=== PATIENT | male | born 1975 | race Caucasian/White ===

== ENCOUNTER 2018-08-04 12:36 | Outpatient (CLI) | payer OTHER ==
[2018-08-04] MEDS ORDERED: AMLO1CAP7 PO (13:06)
[2018-08-04] MEDS ORDERED: OMEP20TA62 PO (13:06)
[2018-08-04] MEDS ORDERED: ONDA8TAB9 PO (13:06)
[2018-08-04] MEDS ORDERED: METF500T17 PO (13:06)
[2018-08-04] MEDS ORDERED: ATOR20TA37 PO (13:06)
[2018-08-04] MEDS ORDERED: SITA25TA PO (13:06)
[2018-08-04 13:42] LABS: BASOPHILS # (AUTO) 0.03 x10^3/uL (0-0.1); BASOPHILS % (AUTO) 0 % (0-1); EOSINOPHILS # (AUTO) 0.07 x10^3/uL (0-0.4); EOSINOPHILS % (AUTO) 1 % (1-7); LYMPHOCYTES # (AUTO) 2.22 x10^3/uL (1-3.4); LYMPHOCYTES % (AUTO) 20 % (22-44); MD NO; MEAN CORPUSCULAR HEMOGLOBIN 30.1 pg (27.5-34.5); MEAN CORPUSCULAR HGB CONC 33.3 g/dL (33.2-36.2); MEAN CORPUSCULAR VOLUME 90.3 fL (81-97); MEAN PLATELET VOLUME 9.4 fL (7.4-10.4); MONOCYTES # (AUTO) 0.65 x10^3/uL (0.2-0.8); MONOCYTES % (AUTO) 6 % (2-9); NEUTROPHILS # (AUTO) 8.27 x10^3/uL (1.8-6.8); NEUTROPHILS % (AUTO) 74 % (42-75); PLATELET COUNT 211 x10^3/uL (130-400); RED BLOOD COUNT 5.73 x10^6/uL (4.38-5.82); RED CELL DISTRIBUTION WIDTH 13.5 % (9.4-14.8)
[2018-08-04 14:27] LABS: ALBUMIN 3.9 g/dL (3.4-5.0); CHLORIDE 106 mmol/L (98-107); CHOLESTEROL, TOTAL 226 mg/dL (140-239); CREATININE 0.95 mg/dL (0.7-1.3)
[2018-08-04 14:55] LABS: % IRON SATURATION 22 % (20-55); ALANINE AMINOTRANSFERASE 45 U/L (12-78); ALKALINE PHOSPHATASE 91 U/L (45-117); ANION GAP 7 mmol/L (5-15); BILIRUBIN,TOTAL 0.8 mg/dL (0.2-1.0); CALCIUM 9.3 mg/dL (8.5-10.1); CHOL/HDL RATIO 4.6; HDL CHOL % 22 % (26-37); HDL CHOLESTEROL (DIRECT) 49 mg/dL (40-60); IRON LEVEL 73 mcg/dL (65-175); LDL CHOLESTEROL,CALCULATED 150 mg/dL (54-169); LDL/HDL RATIO 3.1 (0.5-3.0); PREALBUMIN 28.3 mg/dL (20.0-40.0); TOTAL IRON BINDING CAPACITY 328 mcg/dL (250-450); TOTAL PROTEIN 8.9 g/dL (6.4-8.2); TRANSFERRIN 239 mg/dL (200-360); TRIGLYCERIDES 135 mg/dL (50-200); VLDL CHOLESTEROL 27 mg/dL (0-25)
[2018-08-04 14:56] LABS: FOLATE LEVEL > 20.0 ng/mL (3.1-17.5)
== END 2018-08-04 23:59 | disposition home or self-care (01) ==
LOC: STAR 12:36
PROVIDERS: ATTEND Thoracic Surgery (Cardiothoracic Vascular Surgery)
DX: Z01.818 Encounter for other preprocedural examination (principal); E66.01 Morbid (severe) obesity due to excess calories; G47.30 Sleep apnea, unspecified; E11.9 Type 2 diabetes mellitus without complications; F41.9 Anxiety disorder, unspecified
CPT/HCPCS: 36415; 71046; 80053; 80061; 82306; 82728; 82746; 83540; 83550; 83970; 84134; 84425; 84466; 85025; 93005

== ENCOUNTER → 2018-12-13 | Outpatient (CLI) | payer OTHER ==
[~2018-12-13] MED LIST: AMLO1CAP7 PO; ATOR20TA37 PO; HYDR473S47 PO; METF500T17 PO; OMEP20TA62 PO; ONDA8TAB9 PO; SITA25TA PO
[2018-12-13 09:03] LABS: ALBUMIN 3.9 g/dL (3.4-5.0); CALCIUM 9.5 mg/dL (8.5-10.1); CHOLESTEROL, TOTAL 167 mg/dL (140-239); TOTAL IRON BINDING CAPACITY 289 mcg/dL (250-450)
[2018-12-13 09:18] LABS: ANION GAP 5 mmol/L (5-15); CHLORIDE 112 mmol/L (98-107)
[2018-12-13 09:30] LABS: % IRON SATURATION 31 % (20-55); ALANINE AMINOTRANSFERASE 28 U/L (12-78); ALKALINE PHOSPHATASE 74 U/L (45-117); BILIRUBIN,TOTAL 0.7 mg/dL (0.2-1.0); CHOL/HDL RATIO 2.5; CREATININE 0.89 mg/dL (0.7-1.3); FOLATE LEVEL 11.2 ng/mL (3.1-17.5); HDL CHOL % 40 % (26-37); HDL CHOLESTEROL (DIRECT) 66 mg/dL (40-60); IRON LEVEL 91 mcg/dL (65-175); LDL CHOLESTEROL,CALCULATED 87 mg/dL (54-169); LDL/HDL RATIO 1.3 (0.5-3.0); PREALBUMIN 22.7 mg/dL (20.0-40.0); TRIGLYCERIDES 71 mg/dL (50-200); VLDL CHOLESTEROL 14 mg/dL (0-25)
[2018-12-13 09:45] LABS: BASOPHILS # (AUTO) 0.05 x10^3/uL (0-0.1); BASOPHILS % (AUTO) 1 % (0-1); EOSINOPHILS # (AUTO) 0.11 x10^3/uL (0-0.4); EOSINOPHILS % (AUTO) 1 % (1-7); LYMPHOCYTES # (AUTO) 2.14 x10^3/uL (1-3.4); LYMPHOCYTES % (AUTO) 28 % (22-44); MD NO; MEAN CORPUSCULAR HEMOGLOBIN 31.1 pg (27.5-34.5); MEAN CORPUSCULAR HGB CONC 32.6 g/dL (33.2-36.2); MEAN CORPUSCULAR VOLUME 95.4 fL (81-97); MEAN PLATELET VOLUME 10.1 fL (7.4-10.4); MONOCYTES # (AUTO) 0.45 x10^3/uL (0.2-0.8); MONOCYTES % (AUTO) 6 % (2-9); NEUTROPHILS # (AUTO) 5.06 x10^3/uL (1.8-6.8); NEUTROPHILS % (AUTO) 65 % (42-75); PLATELET COUNT 208 x10^3/uL (130-400); RED BLOOD COUNT 5.05 x10^6/uL (4.38-5.82)
== END | disposition home or self-care (01) ==
LOC: LAB 08:34
PROVIDERS: ATTEND Clinical Nurse Specialist
DX: I10 Essential (primary) hypertension (principal); E66.01 Morbid (severe) obesity due to excess calories; K90.9 Intestinal malabsorption, unspecified; E56.9 Vitamin deficiency, unspecified; R63.8 Other symptoms and signs concerning food and fluid intake
CPT/HCPCS: 36415; 80053; 80061; 82306; 82607; 82746; 83540; 83550; 84134; 84207; 84425; 85025

== ENCOUNTER 2019-07-14 08:51 | Outpatient (CLI) | payer OTHER ==
[~2019-07-14 08:51] MED LIST changes: +AMLO1CAP42 PO; -AMLO1CAP7 PO
[2019-07-14 09:21] LABS: ALANINE AMINOTRANSFERASE 31 U/L (12-78); ALBUMIN 3.5 g/dL (3.4-5.0); ANION GAP 3 mmol/L (5-15); CHLORIDE 111 mmol/L (98-107); CHOLESTEROL, TOTAL 190 mg/dL (140-239); CREATININE 0.97 mg/dL (0.7-1.3)
[2019-07-14 09:24] LABS: ALKALINE PHOSPHATASE 74 U/L (45-117); BILIRUBIN,TOTAL 0.8 mg/dL (0.2-1.0); CHOL/HDL RATIO 2.3; HDL CHOL % 44 % (26-37); HDL CHOLESTEROL (DIRECT) 84 mg/dL (40-60); LDL CHOLESTEROL,CALCULATED 93 mg/dL (54-169); LDL/HDL RATIO 1.1 (0.5-3.0); TOTAL PROTEIN 7.8 g/dL (6.4-8.2); TRIGLYCERIDES 64 mg/dL (50-200); VLDL CHOLESTEROL 13 mg/dL (0-25)
== END 2019-07-14 23:59 | disposition home or self-care (01) ==
LOC: LAB 08:51
PROVIDERS: ATTEND Family Medicine
DX: E11.9 Type 2 diabetes mellitus without complications (principal)
CPT/HCPCS: 36415; 80053; 80061; 82043; 83036

== ENCOUNTER 2019-09-25 10:55 | Outpatient (CLI) | payer OTHER ==
[2019-09-25] MEDS ORDERED: BIOTIN PO (11:25)
[2019-09-25] MEDS ORDERED: LIPITOR PO (11:25)
[2019-09-25] MEDS ORDERED: AMLO1CAP6 PO (11:25)
[2019-09-25] MEDS ORDERED: CHOL10003 PO (11:25)
[2019-09-25] MEDS ORDERED: [UNRECOGNIZED DRUG - OTHER] PO (11:25)
[2019-09-25] MEDS ORDERED: METF500T17 PO (11:25)
[2019-09-25 11:57] LABS: BASOPHILS # (AUTO) 0.04 x10^3/uL (0-0.1); BASOPHILS % (AUTO) 0 % (0-1); EOSINOPHILS # (AUTO) 0.09 x10^3/uL (0-0.4); EOSINOPHILS % (AUTO) 1 % (1-7); LYMPHOCYTES # (AUTO) 2.17 x10^3/uL (1-3.4); LYMPHOCYTES % (AUTO) 23 % (22-44); MD NO; MEAN CORPUSCULAR HEMOGLOBIN 31.1 pg (27.5-34.5); MEAN CORPUSCULAR HGB CONC 33.2 g/dL (33.2-36.2); MEAN CORPUSCULAR VOLUME 93.8 fL (81-97); MEAN PLATELET VOLUME 9.5 fL (7.4-10.4); MONOCYTES # (AUTO) 0.49 x10^3/uL (0.2-0.8); MONOCYTES % (AUTO) 5 % (2-9); NEUTROPHILS # (AUTO) 6.69 x10^3/uL (1.8-6.8); NEUTROPHILS % (AUTO) 71 % (42-75); PLATELET COUNT 207 x10^3/uL (130-400); RED BLOOD COUNT 4.91 x10^6/uL (4.38-5.82); RED CELL DISTRIBUTION WIDTH 13.1 % (9.4-14.8)
[2019-09-25 12:01] LABS: ALANINE AMINOTRANSFERASE 22 U/L (12-78); ALBUMIN 3.5 g/dL (3.4-5.0); ANION GAP 8 mmol/L (5-15); CHLORIDE 111 mmol/L (98-107)
[2019-09-25 12:03] LABS: ALKALINE PHOSPHATASE 82 U/L (45-117); BILIRUBIN,TOTAL 0.6 mg/dL (0.2-1.0); TOTAL PROTEIN 7.7 g/dL (6.4-8.2)
[2019-09-25 12:04] LABS: INTERNATIONAL NORMALIZED RATIO 0.96 (0.93-1.1); PROTHROMBIN TIME 10.2 Seconds (9.6-11.5)
== END 2019-09-25 23:59 | disposition home or self-care (01) ==
LOC: STAR 10:55
PROVIDERS: ATTEND Orthopaedic Surgery
DX: Z01.818 Encounter for other preprocedural examination (principal); M16.12 Unilateral primary osteoarthritis, left hip; M25.552 Pain in left hip; I49.5 Sick sinus syndrome; Q65.89 Other specified congenital deformities of hip; Z79.899 Other long term (current) drug therapy
CPT/HCPCS: 36415; 80053; 83036; 85025; 85610; 85730; 87081; 93005

== ENCOUNTER 2019-10-04 05:54 | Day surgery (SDC) | payer OTHER ==
[~2019-10-04] VITALS: Ht 190.5 cm; Wt 153.0 kg
[~2019-10-04 05:54] MED LIST changes: +AMLO1CAP6 PO; +BIOTIN PO; +CHOL10003 PO; +LIPITOR PO; +[UNRECOGNIZED DRUG - OTHER] PO
[2019-10-04] MEDS ORDERED: LACTATED RINGERS 1,000 ML IV SCH (06:05)
[2019-10-04 06:08] VITALS: BP 156/107
[2019-10-04] MEDS ORDERED: MIDAZOLAM 1 MG/ML, 2ML ONE (06:23)
[2019-10-04] MEDS ORDERED: FENTANYL PF 250 MCG/5ML ONE (06:24)
[2019-10-04] MEDS ORDERED: BISACODYL 10 MG SUPP PR PRN (06:30)
[2019-10-04] MEDS ORDERED: ONDANSETRON 2MG/ML, 2ML IV PRN (06:30)
[2019-10-04] MEDS ORDERED: DIPHENHYDRAMINE 25 MG CAPSULE PO PRN (06:30)
[2019-10-04] MEDS ORDERED: ONDANSETRON 4 MG TABLET PO PRN (06:30)
[2019-10-04] MEDS ORDERED: ACETAMINOPHEN 500 MG TABLET PO ONE (06:30)
[2019-10-04] MEDS ORDERED: MAGNESIUM HYDROXIDE 8%, 30ML UDC PO PRN (06:30)
[2019-10-04] MEDS ORDERED: GABAPENTIN 300 MG CAPSULE PO ONE (06:30)
[2019-10-04] MEDS ORDERED: ACETAMINOPHEN 650 MG/20.3 ML UDC PO PRN (06:30)
[2019-10-04] MEDS ORDERED: HYDROcodone/APAP 5/325 TABLET PO PRN (06:30)
[2019-10-04] MEDS ORDERED: OXYcodone IR 5MG TABLET PO PRN (06:30)
[2019-10-04] MEDS ORDERED: SENNA/DOCUSATE TABLET PO PRN (06:30)
[2019-10-04] MEDS ORDERED: ZOLPIDEM 5MG TABLET PO PRN (06:30)
[2019-10-04] MEDS ORDERED: TRANEXAMIC ACID 100 MG/ML, 10ML ONE ×2 (06:35)
[2019-10-04] MEDS ORDERED: ROPIvacaine/PF 0.5%, 30 ML ONE (06:35)
[2019-10-04] MEDS ORDERED: ROPIvacaine/PF 0.5%, 20 ML ONE (06:35)
[2019-10-04] MEDS ORDERED: VANCOMYCIN 1,000 MG ONE (06:35)
[2019-10-04] MEDS ORDERED: KETOROLAC 60 MG/2 ML ONE (06:35)
[2019-10-04] MEDS ORDERED: SODIUM CHLORIDE 0.9% 50 ML ONE (06:36)
[2019-10-04] MEDS ORDERED: EPINEPHRINE 1 MG/ML, 1ML ONE (06:36)
[2019-10-04] MEDS ORDERED: OXYcodone 5 MG/5 ML ORAL.SOL UDC PO PRN (07:00)
[2019-10-04] MEDS ORDERED: MEPERIDINE/PF 25MG/ML,1ML IVPush PRN (07:00)
[2019-10-04] MEDS ORDERED: ALBUTEROL/IPRATROPIUM 2.5MG/0.5MG, 3 ML NPPB PRN (07:00)
[2019-10-04] MEDS ORDERED: FENTANYL PF 100 MCG/2ML IV PRN (07:00)
[2019-10-04] MEDS ORDERED: MIDAZOLAM 1 MG/ML, 2ML IV PRN (07:00)
[2019-10-04] MEDS: INSULIN LISPRO 100 UNITS/ML, PEN SQ-INSULIN SCH ×3 (07:00→16:25)
[2019-10-04] MEDS ORDERED: hydrALAzine 20 MG/ML, 1ML IV PRN (07:00)
[2019-10-04] MEDS ORDERED: PROMETHAZINE 25 MG/ML, 1ML IV PRN (07:00)
[2019-10-04] MEDS ORDERED: METOPROLOL 1 MG/ML, 5ML IV PRN (07:00)
[2019-10-04] MEDS ORDERED: HYDROmorphone 1 MG/ML, 1ML INJ IVPush PRN (07:00)
[2019-10-04] MEDS ORDERED: PROPOFOL 10 MG/ML, 20ML ONE (07:20)
[2019-10-04] MEDS ORDERED: ONDANSETRON 2MG/ML, 2ML ONE (07:20)
[2019-10-04] MEDS ORDERED: CEFAZOLIN 1,000 MG ONE ×2 (07:20)
[2019-10-04] MEDS ORDERED: NEOSTIGMINE 1 MG/ML, 10ML ONE (07:20)
[2019-10-04] MEDS ORDERED: ROCURONIUM 10MG/ML,5ML ONE (07:20)
[2019-10-04] MEDS ORDERED: DEXAMETHASONE 4 MG/ML, 1ML ONE (07:20)
[2019-10-04] MEDS ORDERED: GLYCOPYRROLATE 0.2MG/1ML, 5ML ONE (07:20)
[2019-10-04] MEDS ORDERED: SUCCINYLCHOLINE 20 MG/ML, 10ML ONE (07:20)
[2019-10-04] MEDS ORDERED: FENTANYL PF 100 MCG/2ML ONE ×2 (07:42→08:19)
[2019-10-04] MEDS ORDERED: OXYcodone 5 MG/5 ML ORAL.SOL UDC ONE (08:19)
[2019-10-04] MEDS ORDERED: metFORMIN 500 MG TABLET PO SCH (09:00)
[2019-10-04] MEDS ORDERED: DOCUSATE 100 MG CAPSULE PO SCH (09:00)
[2019-10-04] MEDS ORDERED: NS + 20MEQ KCL 1,000 ML IV SCH (09:57)
[2019-10-04] MEDS ORDERED: BENAZEPRIL 20 MG TABLET PO SCH (10:13)
[2019-10-04] MEDS ORDERED: AMLODIPINE 5 MG TABLET PO SCH (10:30)
[2019-10-04 13:53] VITALS: BP 122/82
[2019-10-04] MEDS ORDERED: CEFAZOLIN PMX 2GM/50ML 50 ML IVPB SCH (15:00)
[2019-10-04 15:44] VITALS: BP 117/77
[2019-10-04] MEDS ORDERED: TRAM50TA2 PO (16:36)
[2019-10-04] MEDS ORDERED: MELO7.5T31 PO (16:36)
[2019-10-04] MEDS ORDERED: OXYC5TAB3 PO (16:36)
[2019-10-04] MEDS ORDERED: ASPIRIN 81 MG TABLET EC PO SCH (18:00)
[2019-10-04] MEDS ORDERED: ATORVASTATIN 20 MG TABLET PO SCH (21:00)
[2019-10-05] MEDS ORDERED: DEXAMETHASONE 4 MG/ML, 1ML IVPush SCH (06:00)
[2019-11-29] MEDS ORDERED: MELO7.5T31 PO (14:02)
[2019-11-29] MEDS ORDERED: OXYC5TAB3 PO (14:04)
[2019-11-29] MEDS ORDERED: TRAM50TA2 PO (14:05)
== END 2019-10-04 16:55 | disposition home or self-care (01) ==
LOC: OUT 05:54 → 4NE 09:34 → DCLOUNGE 16:52 → OUT 16:55
PROVIDERS: ATTEND Orthopaedic Surgery
DX: Q65.89 Other specified congenital deformities of hip (principal); M16.0 Bilateral primary osteoarthritis of hip; M25.752 Osteophyte, left hip; I10 Essential (primary) hypertension; E78.5 Hyperlipidemia, unspecified; E11.9 Type 2 diabetes mellitus without complications; G47.33 Obstructive sleep apnea (adult) (pediatric); E66.01 Morbid (severe) obesity due to excess calories; Z79.84 Long term (current) use of oral hypoglycemic drugs; Z79.899 Other long term (current) drug therapy; Z98.84 Bariatric surgery status; Z82.3 Family history of stroke
CPT/HCPCS: 27130; 72170; 73501; 82962; 97161; 97165; C1713; C1776; J0171; J0330; J0690; J1100; J1885; J2250; J2405; J2704; J2710; J2795; J3010; J3370; J3480; J7120; 76000; J1815

== ENCOUNTER → 2019-11-23 | Outpatient (CLI) | payer OTHER ==
[~2019-11-23] MED LIST changes: +MELO7.5T31 PO; +OXYC5TAB3 PO; +TRAM50TA2 PO
[2019-11-23 16:42] LABS: INTERNATIONAL NORMALIZED RATIO 0.95 (0.93-1.1); PROTHROMBIN TIME 10.1 Seconds (9.6-11.5)
[2019-11-23 16:43] LABS: ALANINE AMINOTRANSFERASE 17 U/L (12-78); ALBUMIN 3.6 g/dL (3.4-5.0); ANION GAP 5 mmol/L (5-15); CALCIUM 8.9 mg/dL (8.5-10.1); CHLORIDE 109 mmol/L (98-107)
[2019-11-23 16:46] LABS: ALKALINE PHOSPHATASE 98 U/L (45-117); BILIRUBIN,TOTAL 0.4 mg/dL (0.2-1.0); CREATININE 0.92 mg/dL (0.7-1.3); TOTAL PROTEIN 8.2 g/dL (6.4-8.2)
[2019-11-23 16:56] LABS: BASOPHILS # (AUTO) 0.04 x10^3/uL (0-0.1); BASOPHILS % (AUTO) 1 % (0-1); EOSINOPHILS # (AUTO) 0.07 x10^3/uL (0-0.4); EOSINOPHILS % (AUTO) 1 % (1-7); LYMPHOCYTES # (AUTO) 1.79 x10^3/uL (1-3.4); LYMPHOCYTES % (AUTO) 22 % (22-44); MD MORPH REVIEW ONLY; MEAN CORPUSCULAR HEMOGLOBIN 30.6 pg (27.5-34.5); MEAN CORPUSCULAR HGB CONC 33.1 g/dL (33.2-36.2); MEAN CORPUSCULAR VOLUME 92.6 fL (81-97); MEAN PLATELET VOLUME 9.5 fL (7.4-10.4); MONOCYTES % (AUTO) 5 % (2-9); NEUTROPHILS # (AUTO) 5.79 x10^3/uL (1.8-6.8); NEUTROPHILS % (AUTO) 72 % (42-75); PLATELET COUNT 277 x10^3/uL (130-400); RED BLOOD COUNT 4.92 x10^6/uL (4.38-5.82); RED CELL DISTRIBUTION WIDTH 13.7 % (9.4-14.8)
[2019-11-23 16:57] LABS: <PLATELET ESTIMATE> ADEQUATE; <PLT MORPHOLOGY> NORMAL PLT MORPH; <RBC MORPHOLOGY> NORMAL
== END | disposition home or self-care (01) ==
LOC: STAR 15:09
PROVIDERS: ATTEND Orthopaedic Surgery
DX: Z01.818 Encounter for other preprocedural examination (principal); M16.12 Unilateral primary osteoarthritis, left hip; Q65.89 Other specified congenital deformities of hip
CPT/HCPCS: 36415; 80053; 83036; 85025; 85610; 85730; 87081; 93005

== ENCOUNTER → 2020-05-07 | Outpatient (CLI) | payer OTHER ==
[2020-05-07 08:37] LABS: ALBUMIN 3.5 g/dL (3.4-5.0); ANION GAP 1 mmol/L (5-15); CALCIUM 9.4 mg/dL (8.5-10.1); CHLORIDE 110 mmol/L (98-107)
[2020-05-07 08:40] LABS: ALANINE AMINOTRANSFERASE 24 U/L (12-78); ALKALINE PHOSPHATASE 87 U/L (45-117); BILIRUBIN,TOTAL 0.7 mg/dL (0.2-1.0); CHOL/HDL RATIO 2.8; CHOLESTEROL, TOTAL 186 mg/dL (140-239); CREATININE 0.98 mg/dL (0.7-1.3); HDL CHOL % 36 % (26-37); HDL CHOLESTEROL (DIRECT) 67 mg/dL (40-60); LDL CHOLESTEROL,CALCULATED 96 mg/dL (54-169); LDL/HDL RATIO 1.4 (0.5-3.0); TOTAL PROTEIN 7.7 g/dL (6.4-8.2); TRIGLYCERIDES 113 mg/dL (50-200); VLDL CHOLESTEROL 23 mg/dL (0-25)
== END | disposition home or self-care (01) ==
LOC: LAB 08:11
PROVIDERS: ATTEND Family Medicine
DX: E11.69 Type 2 diabetes mellitus with other specified complication (principal)
CPT/HCPCS: 36415; 80053; 80061; 82043; 83036